=== PATIENT | female | born 1955 | race Caucasian/White ===

== ENCOUNTER 2025-03-25 02:22 | Emergency (ER) | payer MEDICARE, SELFPAY ==
[2025-03-25] VITALS (7 sets, daily range): BP systolic 118–146; BP diastolic 61–79
[2025-03-25 02:53] LABS: Hematocrit 38.7 % (37.0-47.0); Hemoglobin 12.9 g/dL (12.0-16.0); Mean Corp Hgb Conc. 33.3 g/dL (33.0-37.0); Mean Corpuscular Volume 86.6 fL (81.0-99.0); Nucleated Red Blood Cells % 0 %; Platelet Count 290 10^3/uL (130-400); Red Cell Dist. Width 13.0 % (11.5-14.5)
[2025-03-25 03:12] LABS: ALT (SGPT) 18 U/L (0-35); AST (SGOT) 20 U/L (14-36); Albumin 4.2 g/dl (3.5-5.0); Alkaline Phosphatase 118 U/L (38-126); Blood Urea Nitrogen 18 mg/dl (7-17); Calcium 9.6 mg/dl (8.4-10.2); Carbon Dioxide 27 mmol/L (22-30); Chloride 108 mmol/L (98-107); Glucose 153 mg/dl (70-99); Potassium 5.0 mmol/L (3.5-5.1); Sodium 140 mmol/L (135-145); Total Protein 7.2 g/dl (6.3-8.2); eGFR > 60.00
[2025-03-25 03:25] LABS: Troponin I 0.012 ng/ml
[2025-03-25 06:43] LABS: Troponin I < 0.012 ng/ml
--- NOTE | 2025-03-25 07:01 | ED.GENMED ---
History of Present Illness
<Lucas Choi, DO - Last Filed: 03/25/25 07:06>
General
Chief Complaint: Heart Rate Problem
Source: patient
Time Seen by Provider: 03/25/25 05:39
Nursing documentation reviewed up to this point in time: agreed with
History of Present Illness
History of Present Illness:
Note:
CHIEF COMPLAINT(S)
Palpitations and chest discomfort.
HISTORY OF PRESENT ILLNESS
The patient is a 69-year-old female who presented with palpitations and chest discomfort. She reported that the episodes began when she went to sleep and felt palpitations that caused her to wake up. She denied any previous history of arrhythmia or
similar episodes. She is not on blood thinners. She attempted to alleviate the sensation by breathing techniques but noted it did not resolve the feeling of irregular heartbeats. Her Apple Watch indicated an irregular rhythm. The symptoms persisted
until 2 AM, at which point she decided to seek medical attention. She described the chest discomfort not as classic palpitations, stating, 'This was not that. It felt different.' Despite her being asleep and initially feeling she was not in
immediate danger, the persistent discomfort prompted her hospital visit. Past medical history is notable for diabetes, managed with Monjaro for the last six months, which has successfully decreased her Hemoglobin A1C from 6.8% to 6.0%. Additionally,
she takes a daily baby aspirin.
CHRONIC MEDICAL CONDITIONS SIGNIFICANTLY AFFECTING CARE
Diabetes mellitus, currently managed with Monjaro.
MEDICATIONS
Monjaro for diabetes.
Baby aspirin daily.
PHYSICAL EXAM
General: Alert, no acute distress.
Skin: Warm, dry.
Head: Normocephalic, atraumatic.
Neck: Supple, trachea midline.
Eyes, Ears, Nose, Mouth and Throat: Oral mucosa moist.
Cardiovascular: Normal peripheral perfusion, no edema.
Respiratory: Respirations are non-labored.
Gastrointestinal: Abdomen nondistended.
Back: Normal range of motion, normal alignment.
Musculoskeletal: Normal range of motion, normal strength.
Neurological: Alert and oriented to person, place, time, and situation, no focal neurological deficit observed.
Psychiatric: Cooperative, appropriate mood & affect.
PLAN
1. Repeat blood work, including testing for cardiac enzymes, to rule out cardiac events.
2. If blood work is normal, the patient will be discharged.
3. If cardiac enzyme levels are elevated, proceed with a CT scan for further evaluation.
DIFFERENTIAL DIAGNOSIS
The Differential Diagnosis includes, in no particular order and is not limited to:
1. Atrial fibrillation.
2. Supraventricular tachycardia.
3. Anxiety-induced palpitations.
4. Myocardial ischemia.
5. Electrolyte imbalance.
6. Hyperthyroidism.
7. Medication side effects.
8. Tachy-Smooth syndrome.
9. Hypertension.
10. Pulmonary embolism.
Disposition:
SUMMARY OF ENCOUNTER
The patient is a 69-year-old female who presented to the emergency department due to palpitations and chest discomfort experienced upon waking from sleep. Initial evaluation considered ruling out potential cardiac issues. She reported no prior
history of arrhythmia and attempted to relieve symptoms through breathing exercises without success. An irregular rhythm was noted on her wearable device, prompting the visit.
PLAN
The plan includes checking D-dimer levels to rule out conditions such as pulmonary embolism. Based on the results, further evaluation may be considered, including potentially pursuing a CT scan if indicated by elevated cardiac enzyme levels.
MEDICAL DECISION MAKING
- Complexity of Data Reviewed: Chronic conditions affecting care [Diabetes mellitus, managed with semaglutide] and differential diagnosis includes atrial fibrillation, supraventricular tachycardia, anxiety-induced palpitations, myocardial ischemia,
electrolyte imbalance, hyperthyroidism, medication side effects, tachy-smooth syndrome, hypertension, and pulmonary embolism.
- Data:
- Category 1: D-Dimer is currently pending.
- Risk:
- Consideration of Admission/Observation: Escalation of care, including admission/observation, was considered given the complexity and risk of the patients presenting complaints, exam findings, and underlying comorbidities. However, ultimately, I
feel the patient is safe for outpatient management with close follow-up. Reasoning: Work-up reassuring, does not reveal any acute life/organ-threatening processes; patients symptoms are well controlled upon reevaluation; reexamination is reassuring;
vitals are stable; patient is agreeable with discharge and reliable for follow-up.
DIAGNOSIS
Palpitations - R00.2
Chest discomfort - R07.9
Phy Exam
<Sherine Murray MD - Last Filed: 03/25/25 11:02>
Physical Exam
Physical Exam:
Physical Exam
General: no apparent distress, not acutely ill. Patient appears extremely well and comfortable. She is smiling and conversational
Neck: supple. no meningeal signs. normal psoterior pharynx
Heart: s1/s2 regular rate and rhythm, no murmur. equal radial pulses.
Lungs: no acute respiratory distress. clear bilaterally
Abdomen: normal bowel sounds. not tender. no CVAT
Neuro: alert and oriented. no focal neurological deficits
Skin: no rash
Psychiatric: well kept. interactive and cooperative
Extremities: no edema. no calf tenderness. negative homans. good distal pulses
Course
<Lucas Choi DO - Last Filed: 03/25/25 07:06>
Orders/Labs/Results
Orders:
Orders
03/25/25 02:34
Electrocardiogram (*1) Urgent
Reason for Study: Other
Other Reason for Exam: Respiratory Distress
Cardiac Monitoring- Treatment ONCE
EKG- Treatment ONCE
IV Insert/Care/Rem.- Treatment PRN
CR Chest - 2 Views Urgent
Comment:
Reason For Exam: respiratory distress
O2 Therapy [RESP] Urgent
Titrate/Wean O2 to maintain O2 sat greater than (%): 93
Special Instructions: TO MAINTAIN CONTINUOUS O2 SATS >/= 93%
Pulse Ox/cont/shift [RESP] Urgent
Quantity: 1
Special Instructions: continuous pulse ox
03/25/25 02:45
Complete Blood Count/With Diff Urgent
Comprehensive Metabolic Panel Urgent
NT-proBNP Urgent
Troponin I Urgent
03/25/25 06:05
Electrocardiogram (*1) Urgent
Reason for Study: Other
Other Reason for Exam: repeat troponin
EKG- Treatment ONCE
03/25/25 06:12
D-Dimer Urgent
Troponin I Urgent
03/25/25 07:48
CT Chest PE Study Urgent
Comment:
Reason For Exam: tachycardia
Abnormal Lab Results
03/25/25 03/25/25
02:45 06:12
Absolute Monos (auto) 0.8 H 10^3/uL
(0.1-0.6)
Monocytes % 10.2 H %
(1.7-9.3)
D-Dimer 1.94 H ug/mlFEU
(0.00-0.50)
Chloride 108 H mmol/L
(98-107)
BUN 18 H mg/dl
(7-17)
Glucose 153 H mg/dl
(70-99)
03/25/25 02:45
03/25/25 02:45
Vital Signs
Initial and Last Documented VS:
Initial Vital Signs
Temp Pulse Resp BP Pulse Ox
98.9 F 126 20 144/79 100
03/25/25 02:27 03/25/25 02:27 03/25/25 02:27 03/25/25 02:27 03/25/25 02:27
Last Documented Vital Signs
Temp Pulse Resp BP Pulse Ox
98.9 F 81 22 126/62 96
03/25/25 02:27 03/25/25 09:00 03/25/25 09:00 03/25/25 09:00 03/25/25 09:00
<Sherine Murray MD - Last Filed: 03/25/25 11:02>
Orders/Labs/Results
Orders:
Orders
03/25/25 02:34
Electrocardiogram (*1) Urgent
Reason for Study: Other
Other Reason for Exam: Respiratory Distress
Cardiac Monitoring- Treatment ONCE
EKG- Treatment ONCE
IV Insert/Care/Rem.- Treatment PRN
CR Chest - 2 Views Urgent
Comment:
Reason For Exam: respiratory distress
O2 Therapy [RESP] Urgent
Titrate/Wean O2 to maintain O2 sat greater than (%): 93
Special Instructions: TO MAINTAIN CONTINUOUS O2 SATS >/= 93%
Pulse Ox/cont/shift [RESP] Urgent
Quantity: 1
Special Instructions: continuous pulse ox
03/25/25 02:45
Complete Blood Count/With Diff Urgent
Comprehensive Metabolic Panel Urgent
NT-proBNP Urgent
Troponin I Urgent
03/25/25 06:05
Electrocardiogram (*1) Urgent
Reason for Study: Other
Other Reason for Exam: repeat troponin
EKG- Treatment ONCE
03/25/25 06:12
D-Dimer Urgent
Troponin I Urgent
03/25/25 07:48
CT Chest PE Study Urgent
Comment:
Reason For Exam: tachycardia
Abnormal Lab Results
03/25/25 03/25/25
02:45 06:12
Absolute Monos (auto) 0.8 H 10^3/uL
(0.1-0.6)
Monocytes % 10.2 H %
(1.7-9.3)
D-Dimer 1.94 H ug/mlFEU
(0.00-0.50)
Chloride 108 H mmol/L
(98-107)
BUN 18 H mg/dl
(7-17)
Glucose 153 H mg/dl
(70-99)
03/25/25 02:45
03/25/25 02:45
Vital Signs
Initial and Last Documented VS:
Initial Vital Signs
Temp Pulse Resp BP Pulse Ox
98.9 F 126 20 144/79 100
03/25/25 02:27 03/25/25 02:27 03/25/25 02:27 03/25/25 02:27 03/25/25 02:27
Last Documented Vital Signs
Temp Pulse Resp BP Pulse Ox
98.9 F 81 22 126/62 96
03/25/25 02:27 03/25/25 09:00 03/25/25 09:00 03/25/25 09:00 03/25/25 09:00
<Lucas Choi DO - Last Filed: 03/25/25 07:06>
*Pulse Oximetry
SaO2: 96
Oxygen Mode of Delivery: Room air
Patient hypoxic: no
*Critical Care Note
Total Time (30-74mins, 75-104mins- exclusive of procedures): Not Applicable
<Sherine Murray MD - Last Filed: 03/25/25 11:02>
*Radiology
Radiology exam reviewed: radiology read reviewed
*EKG
Interpreted by ED Provider?: NA
*[employer] Interpretation
Rate: normal
Interpretation: normal
Rhythm: sinus
<Sherine Murray MD - Last Filed: 03/25/25 11:02>
Patient Management
Social determinants of health affecting care: Living situation and Strong social support
<Sherine Murray MD - Last Filed: 03/25/25 11:02>
Update Note
Update Note:
9:00 AM patient's heart rate is in the 70s. Patient appears well and comfortable.
ED Attending Note
<Lucas Choi, DO - Last Filed: 03/25/25 07:06>
-
Portions of this chart may have been created with voice recognition software.� Occasional wrong word or��sound alike� substitutions may have occurred due to the inherent limitations of voice recognition software.
Discharge Plan
Departure
Patient Disposition: Home (Routine Discharge)
Date of Disposition: 03/25/25
Time of Disposition: 09:01
Patient with high blood pressure during this ER visit?: No
Condition: Good
Covid-19: Not Applicable
Discharge Problem:
Palpitation
Instructions: Palpitations (DC)
Prescriptions:
No Action
amlodipine-benazepril 5-10 mg Capsule
1 cap PO DAILY
rosuvastatin 5 mg Tablet
5 mg PO DAILY
Mounjaro 5 mg/0.5 mL Pen Injector
5 mg SC QWEEK
Rx Instructions:
on wednesday
Referrals:
Cheryl Vidal MD [Family Provider, Internal Medicine]
Activity Restrictions/Additional Instructions:
Please follow-up with your primary care doctor within 1 week.
Interventions
Interventions:
*Risk Screen - Suicide Last Done: 03/25/25 02:27
*General Assessment Last Done: 03/25/25 02:27
*Neglect/Abuse Screening Last Done: 03/25/25 02:27
*ED- Fall Risk Assessment Last Done: 03/25/25 02:27
*ED COVID-19 Vaccine History Last Done: 03/25/25 02:27
*ED Influenza Vaccine History Last Done: 03/25/25 02:27
*Nursing Disposition Last Done: 03/25/25 09:10
ED- Cardiac Assessment Last Done: 03/25/25 03:02
ED- Pulmonary Assessment Last Done: 03/25/25 03:02
Discharge Date and Time
Discharge Date/Time: 03/25/25 09:12
Print Language: INDIAN
[2025-03-25 07:19] LABS: D-Dimer 1.94 ug/mlFEU (0.00-0.50)
== END 2025-03-25 09:12 | disposition home or self-care (01) ==
LOC: EMR 02:22
PROVIDERS: EMERGENCY PHYSICIAN Student in an Organized Health Care Education/Training Program; FAMILY PHYSICIAN Internal Medicine
DX: R00.2 Palpitations (principal); R07.89 Other chest pain; E11.9 Type 2 diabetes mellitus without complications; Z79.82 Long term (current) use of aspirin; Z90.49 Acquired absence of other specified parts of digestive tract
CPT/HCPCS: 99284; 71046; 71275; 80053; 83880; 84484; 85025; 85379; 93005; Q9967